=== PATIENT | female | born 1945 | race Caucasian/White ===

== ENCOUNTER → 2022-03-19 09:00 | Outpatient (BNVA) | payer MEDICARE, SELFPAY | PROVIDERS: Family Provider Family Medicine; PCP Family Medicine; Visit Provider Podiatrist Foot & Ankle Surgery | DX: L60.3 Nail dystrophy (principal); I73.9 Peripheral vascular disease, unspecified | CPT/HCPCS: 11721 ==

== ENCOUNTER 2022-04-24 07:43 | Emergency (ER) | payer MEDICARE, SELFPAY ==
[2022-04-24 07:55] VITALS: BP 201/91; PULSE 83; RESP 16; TEMP 36.9; O2SAT 95; BMI 31.1
--- NOTE | 2022-04-24 08:07 | CT_ITS ---
WS: [id number] CT HEAD TECHNIQUE: Noncontrast CT of the head obtained from the skullbase to the vertex. CLINICAL INFORMATION: CVA COMPARISON: None. DLP: 1061.[address] scans at [facility] use at least one of these dose optimization techniques: automated e xposure control; mA and/or kV adjustment per patient size (includes targeted exams where dose is matc hed to clinical indication); or iterative reconstruction. FINDINGS: No evidence of intracranial hemorrhage or mass effect. Ventricular system and basal cisterns are gonzalez nt. Mild small vessel changes with mild parenchymal volume loss. Intracranial vascular calcification. Chronic lacunar infarct RIGHT thalamus. No extra-axial fluid collections. No evidence of mass or mas s effect. Paranasal sinuses and mastoid air cells are well aerated. .Normal visualized soft tissues. CT/CT head wo con* [id number] IMPRESSION: 1. No evidence of intracranial hemorrhage or mass effect. 2. Mild small vessel changes with mild parenchymal volume loss. 3. Chronic lacunar infarct RIGHT thalamus. 4. Dense intracranial vascular calcification. 5. No acute intracranial findings.
--- NOTE | 2022-04-24 08:07 | ECG_ITS ---
[facility] Test Date: 2022-04-24 Pat Name: Kristine Goldstein Department: Room: Gender: Female Telephone Betting Clerk: : 1945 Requested By: Mani Singh Order Number: [id number] Richy MD: Wesley Choe M.D. Measurements Intervals [place] Rate: 72 P: 67 OR: 160 QRS: -35 QRSD: 93 T: 60 QT: 393 QTc: 433 Interpretive Statements SINUS RHYTHM LEFT AXIS DEVIATION [QRS AXIS < -30] Compared to ECG 02/21/2017 10:50:31 Left-axis deviation now present Electronically Signed On 04-24-2022 17:55:36 CDT by Wesley Choe M.D. [email or web address]
--- NOTE | 2022-04-24 08:08 | W.ED.WEAKNES ---
HPI - Weakness General: Chief complaint: Weakness Stated complaint: possible stroke, facial droop and numbness Time Seen by Provider: 04/24/22 08:01 History of Present Illness: 76-year-old presents due to numbness and weakness in the left side face left upper extremity and less so left lower extremity. States this started Friday. Denies any focal pain. Denies any other focal weakness numbness or tingling. Denies any vertigo vision or hearing change. She is not on blood thinners. Review of Systems Narrative: - CONSTITUTIONAL: Denies weight loss, fever and chills. - HEENT: Denies changes in vision and hearing. - RESPIRATORY: Denies SOB and cough. - CV: Denies palpitations and CP. - GI: Denies abdominal pain, nausea, vomiting and diarrhea. - : Denies dysuria and urinary frequency. - MSK: Denies myalgia and joint pain. - SKIN: Denies rash and pruritus. - NEUROLOGICAL: As above - PSYCHIATRIC: Denies suicidal ideation ON LICENSE OF [facility] ED PFSH: Medical History Hypertension Primary localized osteoarthritis of left hip PVD (peripheral vascular disease) Surgical History History of left hip replacement History of tonsillectomy History of tubal ligation Social History Smoking and tobacco status: former smoker Alcohol intake: never Physical Exam Narrative: EXAM NARRATIVE: - GENERAL: Alert and oriented x 3. No acute distress. Well-nourished. - EYES: EOMI. Anicteric. - HENT: Atraumatic, no C-spine tenderness. Moist mucous membranes. No scleral icterus. No cervical lymphadenopathy. - LUNGS: Clear to auscultation bilaterally. No accessory muscle use. Equal lung sounds bilaterally. No respiratory distress. - CARDIOVASCULAR: Regular rate and rhythm. No murmur. No JVD. - ABDOMEN: Soft, non-tender and non-distended. Negative CVA tenderness bilaterally, no rebound or guarding, negative Zaldivar sign. No palpable masses. - EXTREMITIES: No edema. Non-tender. - SKIN: No rashes or lesions. Warm. - NEUROLOGIC: No meningismus, left facial and upper body numbness and weakness. More mild numbness and weakness to left lower extremity. Otherwise no focal deficit. - PSYCHIATRIC: Cooperative. Appropriate mood and affect. Course Vital Signs: Vital signs: Vital Signs Temperature 98.4 F 04/24/22 07:55 Pulse Rate 72 04/24/22 09:02 Respiratory Rate 16 04/24/22 09:02 Blood Pressure 168/93 04/24/22 09:02 Pulse Oximetry 92 04/24/22 09:02 MDM - Weakness Medical Decision Making 76-year-old presents due to left-sided numbness and weakness. Physical exam does reveal mild deficits. She is well outside the window for tPA or any other intervention. CT scan does not reveal any intracranial hemorrhage or acute abnormality. Discussed with neurology and per neurology recommendation she will be discharged and follow-up with them in clinic. Otherwise lab work unremarkable except for urinalysis possible UTI. Prescription for Keflex provided. At this time I believe patient would be safe for discharge and outpatient follow-up. Return precautions provided. Plan was reviewed with the patient who expressed understanding. Questions answered. Patient will follow up with neurology and PCP. Patient discharged in stable condition. Lab Data : 04/24/22 08:25 04/24/22 08:[address] 04/24/22 08:07 IMPRESSION: 1. No evidence of intracranial hemorrhage or mass effect. 2. Mild small vessel changes with mild parenchymal volume loss. 3. Chronic lacunar infarct RIGHT thalamus. 4. Dense intracranial vascular calcification. 5. No acute intracranial findings. Laboratory Results WBC 6.4 10^3/uL (4.0-10.0) 04/24/22 08:25 RBC 4.28 10^6/uL (4.1-5.3) 04/24/22 08:25 Hgb 14.7 g/dL (11.5-15.3) 04/24/22 08:25 Hct 43.4 % (37.0-47.0) 04/24/22 08:25 MCV 101.4 fl (81-99) H 04/24/22 08:25 MCH 34.3 pg (28.0-34.0) H 04/24/22 08:25 MCHC 33.9 g/dL (30.0-36.0) 04/24/22 08:25 RDW 12.9 % (12.1-15.1) 04/24/22 08:25 Plt Count 162 10^3/cmm (130-400) 04/24/22 08:25 MPV 12.6 fL (7.4-10.4) H 04/24/22 08:25 Neut % (Auto) 71.8 % 04/24/22 08:25 Lymph % (Auto) 15.4 % 04/24/22 08:25 [place] % (Auto) 11.5 % 04/24/22 08:25 Eos % (Auto) 0.9 % 04/24/22 08:25 Baso % (Auto) 0.2 % 04/24/22 08:25 Neut # (Auto) 4.60 10^3/uL (1.8-7.7) 04/24/22 08:25 Lymph # (Auto) 1.0 10^3/uL (0.8-4.8) 04/24/22 08:25 [place] # (Auto) 0.7 10^3/uL (0.2-0.9) 04/24/22 08:25 Eos # (Auto) 0.1 10^3/uL (0.0-0.8) 04/24/22 08:25 Baso # (Auto) 0.0 10^3/uL (0.0-0.1) 04/24/22 08:25 Nucleated RBC % (auto) 0 % 04/24/22 08:25 Nucleated RBCs # 0.0 /100WBC 04/24/22 08:25 Sodium 140 mmol/L (136-145) 04/24/22 08:25 Potassium 4.0 mmol/L (3.5-5.1) 04/24/22 08:25 Chloride 102 mmol/L (98-107) 04/24/22 08:25 Carbon Dioxide 24 mmol/L (22-29) 04/24/22 08:25 Anion Gap 18.0 (5-19) 04/24/22 08:25 BUN 16 mg/dL (8-23) 04/24/22 08:25 Creatinine 0.5 mg/dL (0.5-0.9) 04/24/22 08:25 GFR Calculation Not Reportable 04/24/22 08:25 Glucose 121 mg/dL (65-115) H 04/24/22 08:25 Calculated Osmolality 292 mOsm/kg (285-295) 04/24/22 08:25 Calcium 9.2 mg/dL (8.5-10.5) 04/24/22 08:25 Total Bilirubin 0.5 mg/dL (0.15-1.2) 04/24/22 08:25 AST 24 U/L (0-32) 04/24/22 08:25 ALT 15 U/L (0-33) 04/24/22 08:25 Alkaline Phosphatase 67 IU/L (35-105) 04/24/22 08:25 Total Protein 6.6 g/dL (6.6-8.7) 04/24/22 08:25 Albumin 4.2 g/dL (3.5-5.2) 04/24/22 08:25 Globulin 2.4 g/dL (1.3-4.6) 04/24/22 08:25 TSH 1.67 uIU/mL (0.27-4.20) 04/24/22 08:25 Free T4 1.11 ng/dL (0.82-1.77) 04/24/22 08:25 Urine Color Yellow (Yellow) 04/24/22 08:35 Urine Appearance Clear (CLEAR) 04/24/22 08:35 Urine pH 6.5 (5-7) 04/24/22 08:35 Ur Specific Horace 1.010 (1.005-1.030) 04/24/22 08:35 Urine Protein Neg (Negative) 04/24/22 08:35 Urine Glucose (UA) Norm (Normal) 04/24/22 08:35 Urine Ketones Negative (Negative) 04/24/22 08:35 Urine Blood Neg (Negative) 04/24/22 08:35 Urine Nitrate Negative (Negative) 04/24/22 08:35 Urine Bilirubin Neg (Negative) 04/24/22 08:35 Urine Urobilinogen Norm mg/dL (Negative) 04/24/22 08:35 Ur Leukocyte Esterase 1+ (Negative) H 04/24/22 08:35 Urine RBC 0-4 /hpf (0-2) H 04/24/22 08:35 Urine WBC 5-10 /hpf (0-5) H 04/24/22 08:35 Ur Squamous Epith Cells 0-4 /hpf (0-5) H 04/24/22 08:35 Amorphous Sediment Not Reportable 04/24/22 08:35 Urine Bacteria 1+ /hpf (NONE) H 04/24/22 08:35 EKG Data EKG 1: Other EKG comments: Normal sinus rhythm, rate 72, no signs of acute ischemia or other acute abnormality. Discharge Plan Discharge Condition: Stable Prescriptions: No Action lisinopril 20 mg tablet 20 mg PO DAILY 0RF Complete Multivitamin Tablet 1 tab PO DAILY 0RF glucosamine HCl 500 mg tablet 500 mg PO BID 0RF esomeprazole magnesium 20 mg capsule,delayed release(DR/EC) 20 mg PO DAILY 0RF garlic 1,000 mg capsule 1,000 mg PO DAILY 0RF ginkgo biloba 40 mg tablet 40 mg PO TID 0RF coenzyme Q10 [Co Q-10] 10 mg capsule 10 mg PO TID 0RF chromium picolinate 1,000 mcg tablet 1,000 mcg PO DAILY 0RF omega-3 fatty acids [Fish Oil Concentrate] 1,000 mg capsule 1,000 mg PO DAILY 0RF ascorbic acid (vitamin C) 500 mg capsule, extended release 500 mg PO DAILY 0RF selenium 200 mcg capsule 200 mcg PO DAILY 0RF aspirin [Freddy Chewable Aspirin] 81 mg tablet,chewable 81 mg PO DAILY 0RF Referrals: Nando Avila DO [Primary Care Provider] - Coding Level of Care Code ED 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
[2022-04-24 08:37] LABS: Basophils % 0.2 %; Eosinophils # 0.1 10^3/uL (0.0-0.8); Eosinophils % 0.9 %; Hematocrit 43.4 % (37.0-47.0); Hemoglobin 14.7 g/dL (11.5-15.3); Lymphocytes % 15.4 %; Mean Corpuscular HGB Conc 33.9 g/dL (30.0-36.0); Mean Corpuscular Hemoglobin 34.3 pg (28.0-34.0); Mean Corpuscular Volume 101.4 fl (81-99); Mean Platelet Volume 12.6 fL (7.4-10.4); Monocytes # 0.7 10^3/uL (0.2-0.9); Monocytes % 11.5 %; Neutrophils % 71.8 %; Nucleated Red Blood Cells % 0 %; Platelet Count 162 10^3/cmm (130-400); Red Blood Count 4.28 10^6/uL (4.1-5.3); Red Cell Distribution Width 12.9 % (12.1-15.1); White Blood Count 6.4 10^3/uL (4.0-10.0)
[2022-04-24 08:54] LABS: Bilirubin Urine Neg (Negative); Blood Urine Neg (Negative); Glucose Urine UA Norm (Normal); Ketones Urine Negative (Negative); Leukocyte Esterase Urine 1+ (Negative); Nitrate Urine Negative (Negative); Protein Urine Neg (Negative); Urine Appearance Clear (CLEAR); Urine Color Yellow (Yellow); Urobilinogen Urine Norm (Negative); pH Urine 6.5 (5-7)
[2022-04-24 09:01] LABS: RBC Urine 0-4 /hpf (0-2)
[2022-04-24 09:02] VITALS: BP 168/93; PULSE 72; RESP 16; O2SAT 92
[2022-04-24 09:02] LABS: Bacteria Urine 1+ /hpf; Squamous Epithelial Cell Urine 0-4 /hpf (0-5)
[2022-04-24 09:13] LABS: Alanine Aminotransferase 15 U/L (0-33); Albumin Level 4.2 g/dL (3.5-5.2); Alkaline Phosphatase 67 IU/L (35-105); Aspartate Amino Transferase 24 U/L (0-32); Blood Urea Nitrogen 16 mg/dL (8-23); Calcium 9.2 mg/dL (8.5-10.5); Carbon Dioxide 24 mmol/L (22-29); Chloride 102 mmol/L (98-107); Globulin 2.4 g/dL (1.3-4.6); Glucose 121 mg/dL (65-115); Osmolality Calculated 292 mOsm/kg (285-295); Sodium 140 mmol/L (136-145); Thyroid Stimulating Hormone 1.67 uIU/mL (0.27-4.20); Total Bilirubin 0.5 mg/dL (0.15-1.2); Total Protein 6.6 g/dL (6.6-8.7)
[2022-04-24 09:14] LABS: Free T4 Free Thyroxine 1.11 ng/dL (0.82-1.77)
[2022-04-24 09:47] VITALS: BP 149/81; PULSE 74; RESP 18; TEMP 36.7; O2SAT 95
--- NOTE | 2022-04-25 14:30 | DCPLANNER ---
Addendum entered by Stephania Schuler 04/30/22 15:44: Patient had a follow up appointment scheduled for 04.29.22 with neurology - patient did attend appointment. Original Note: brood hatchery manager had message to schedule a follow up appointment for patient with neurology. brood hatchery manager sent patients information to the front office staff at neurology. Patients information will be printed and reviewed. Clinic will call patient with appointment information.
== END 2022-04-24 09:50 | disposition home or self-care (01) ==
PROVIDERS: Emergency Provider Emergency Medicine; PCP Family Medicine
DX: I63.9 Cerebral infarction, unspecified (principal)
CPT/HCPCS: 70450; 80053; 81001; 84439; 84443; 85025; 93005; 99284

== ENCOUNTER → 2022-04-29 10:49 | Outpatient (BNVA) | payer MEDICARE, SELFPAY | PROVIDERS: PCP Family Medicine; Visit Provider Nurse Practitioner | DX: Z86.73 Personal history of transient ischemic attack (TIA), and cerebral infarction without residual deficits (principal); Z87.891 Personal history of nicotine dependence | CPT/HCPCS: 99204 ==

== ENCOUNTER → 2022-04-30 07:14 | Outpatient (BNVA) | payer MEDICARE, SELFPAY | PROVIDERS: PCP Family Medicine; Visit Provider Nurse Practitioner | DX: I63.9 Cerebral infarction, unspecified (principal) | CPT/HCPCS: 80061 ==

== ENCOUNTER 2022-06-13 10:19 | Outpatient (CLI) | payer MEDICARE, SELFPAY ==
--- NOTE | 2022-06-13 11:00 | MR_ITS ---
WS: [id number] MRA ANGIOGRAPHY [place] HISTORY: I63.9 - Cerebral infarction, unspecified COMPARISON: None available. TECHNIQUE: 3-D MR angiography is performed of the [place]. All images are reviewed including source images. Dominant LEFT vertebral artery. RIGHT vertebral artery is small caliber but patent. Normal basilar ar chaparrita. Posterior cerebral arteries are both identified. Dominant RIGHT posterior communicating artery. Hypoplastic LEFT posterior communicating artery. No aneurysm. Intracranial carotid arteries are both patent with mild atherosclerotic disease. No high-grade stenos is. Mild atherosclerosis within the middle cerebral arteries. Slightly greater narrowing of the LEFT M1 segment. No occlusion or aneurysm. Hypoplastic but patent RIGHT A1 segment. No aneurysms anterior cerebral arteries or anterior communicating artery. MR/MR angio head wo con [id number] IMPRESSION: 1. Mild atherosclerotic disease intracranial carotid arteries and bilateral M1 segments. X line no occlusions or high-grade stenosis. 2. Hypoplastic RIGHT A1 segment but patent. 3. No aneurysms.
== END 2022-06-13 10:20 | disposition home or self-care (01) ==
LOC: RAD 10:21
PROVIDERS: PCP Family Medicine; Visit Provider Nurse Practitioner
DX: I63.9 Cerebral infarction, unspecified (principal); I65.29 Occlusion and stenosis of unspecified carotid artery
CPT/HCPCS: 70544

== ENCOUNTER 2022-06-13 10:20 | Outpatient (CLI) | payer MEDICARE, SELFPAY ==
--- NOTE | 2022-06-13 12:15 | USCV_ITS ---
Kristine Goldstein Age: 77 Gender: F : 1945 Exam Date: 06/13/2022 11:54 Ordering Phys: Yves BowenP MSN AGACNP-BC Technologist: ÓSCAR [place] [facility] [place]ication: CEREBRAL INFARCTION BP: 190 / 95 HR: 88 Rhythm: Sinus Technical Quality: Very technically difficult study MEASUREMENTS (Male / Female) Normal Values 2D ECHO LV Diastolic Diameter PLAX 2.5 cm 4.2 - 5.9 / 3.9 - 5.3 cm LV Systolic Diameter PLAX 1.8 cm IVS Diastolic Thickness 1.7 cm 0.6 - 1.0 / 0.6 - 0.9 cm IVS Systolic Thickness 1.9 cm LVPW Diastolic Thickness 1.6 cm 0.6 - 1.0 / 0.6 - 0.9 cm LVPW Systolic Thickness 1.3 cm LVOT Diameter 2.0 cm LV Ejection Fraction 2D Teich 54.4 % LV Ejection Fraction MOD 2C 63.8 % LV Ejection Fraction 2C AL 63.3 % LA Diameter 2.7 cm LA Width 2.3 cm LA Height 3.5 cm RA Width 2.5 cm RA Height 3.4 cm Aorta at Sinotubular Diameter 2.5 cm IVC Diameter 1.3 cm M-MODE Aortic Annulus Diameter 3.6 cm LA Ao Ratio MM 0.7 DOPPLER AV Peak Velocity 108.0 cm/s LVOT Peak Velocity 66.0 cm/s AV Area Cont Eq vti 2.2 cm squared AV Area Cont Eq pk 1.9 cm squared MV Peak Velocity 101.0 cm/s MV Area PHT 3.5 cm squared Mitral E to A Ratio 0.6 MV E' Velocity 25.5 cm/s Mitral E to MV E' Ratio 8.1 Mitral E to LV E' Lateral Ratio 7.6 Mitral E to LV E' Septal Ratio 8.7 TR Peak Velocity 142.3 cm/s TR Peak Gradient 8.1 mmHg TR Mean Velocity 111.3 cm/s TR Mean Gradient 5.1 mmHg TR Velocity Time Integral 26.0 cm TV Peak E Velocity 40.0 cm/s Right Atrial Pressure 3.0 mmHg Pulmonary Artery Systolic Pressu 11.1 mmHg PV Peak Velocity 72.0 cm/s RV Acceleration Time 0.0 s RV Ejection Time 0.3 s RV AcT/ET 0.1 FINDINGS Left Ventricle Normal left ventricular size and systolic function, EF 63 %. Grade I/IV diastolic dysfunction (abnormal relaxation filling pattern), normal to mildly elevated filling pressures. Right Ventricle The right ventricle is normal in size and function. Right Atrium The right atrium is normal in size. Left Atrium The left atrium is normal in size. Mitral Valve No gross abnormalities noted Aortic Valve Thickened aortic valve. Tricuspid Valve No gross abnormalities noted Pulmonic Valve Pulmonic valve not well visualized. Pericardium Normal pericardium without effusion. Aorta Normal ascending aorta dimension. IVC Normal inferior vena cava. CONCLUSIONS Normal left ventricular size and systolic function, EF 63 %. Grade I/IV diastolic dysfunction (abnormal relaxation filling pattern), normal to mildly elevated filling pressures. Normal cardiac chamber sizes Thickened aortic valve. No significant stenotic or regurgitant lesions, by color-flow Doppler examination There is no pericardial effusion. Technically difficult study because of the poor ultrasonic window No similar previous studies are available for comparison Dr Bryce Hollins MD FACC (Electronically Signed) Final Date: 14 June 2022 10:50 S
== END 2022-06-13 10:21 | disposition home or self-care (01) ==
LOC: RAD 10:21
PROVIDERS: PCP Family Medicine; Visit Provider Nurse Practitioner
DX: I63.9 Cerebral infarction, unspecified (principal); I35.8 Other nonrheumatic aortic valve disorders; I65.29 Occlusion and stenosis of unspecified carotid artery; G31.9 Degenerative disease of nervous system, unspecified
CPT/HCPCS: 70544; 70551; 93306

== ENCOUNTER 2022-06-13 10:20 | Outpatient (CLI) | payer MEDICARE, SELFPAY ==
--- NOTE | 2022-06-13 11:15 | MR_ITS ---
WS: [id number] MRI BRAIN WITHOUT CONTRAST HISTORY: I63.9 - Cerebral infarction, unspecified COMPARISON: CT head 04/24/2022 TECHNIQUE: Diffusion imaging, multiplanar T1, T2 and FLAIR imaging obtained. No evidence for acute infarct or hemorrhage. [place]-white matter differentiation is normal. Mild atrophy and moderate small vessel ischemic disease. There are several T2 and FLAIR signal hyperi ntensities throughout the deep white matter and subcortical white matter. Prior lacunar infarct in th e RIGHT thalamus. No large infarcts. Ventricles and extra-axial spaces are normal. No inferior displacement of cerebellar tonsils. The sella turcica and pituitary gland are unremarkabl e. Seen only on the sagittal T1 sequence is an area of decreased signal in the cervical cord at the C4 l evel. Dural venous sinuses and [place] demonstrate no abnormality on this unenhanced studies. Paranasal sinuses: Clear. Mastoid air cells: Small effusion LEFT mastoid air cells. Calvarium and scalp: Intact. MR/MR head wo con* [id number] IMPRESSION: 1. No acute infarct. 2. No hemorrhage. 3. Mild atrophy and moderate small vessel ischemic disease. Prior lacunar infa rct RIGHT thalamus. 4. Seen only on the sagittal T1 sequence of the brain is a low signal area in the cervical cord at the C4 level. This may be an artifact due to volume averag ing. This needs to be further evaluated for possible cystic lesion in the cervi mickie cord. Recommend follow-up MRI cervical spine with and without contrast.
== END 2022-06-13 10:21 | disposition home or self-care (01) ==
LOC: RAD 10:21
PROVIDERS: PCP Family Medicine; Visit Provider Nurse Practitioner
DX: I63.9 Cerebral infarction, unspecified (principal); G31.9 Degenerative disease of nervous system, unspecified; I65.29 Occlusion and stenosis of unspecified carotid artery
CPT/HCPCS: 70544; 70551

== ENCOUNTER → 2022-07-23 08:10 | Outpatient (BNVA) | payer MEDICARE, SELFPAY | PROVIDERS: PCP Family Medicine; Visit Provider Podiatrist Foot & Ankle Surgery | DX: I73.9 Peripheral vascular disease, unspecified (principal); L60.3 Nail dystrophy | CPT/HCPCS: 11721 ==

== ENCOUNTER → 2022-12-10 07:58 | Outpatient (BNVA) | payer MEDICARE, SELFPAY | PROVIDERS: PCP Family Medicine; Visit Provider Podiatrist Foot & Ankle Surgery | DX: I73.9 Peripheral vascular disease, unspecified (principal); L60.3 Nail dystrophy | CPT/HCPCS: 11721 ==

== ENCOUNTER → 2023-01-21 10:46 | Outpatient (BNVA) | payer MEDICARE, SELFPAY | PROVIDERS: PCP Family Medicine; Visit Provider Family Medicine | DX: I10 Essential (primary) hypertension (principal); R41.3 Other amnesia; I63.9 Cerebral infarction, unspecified | CPT/HCPCS: 80053; 80061; 82607; 84443; 85025 ==

== ENCOUNTER → 2023-03-12 08:20 | Outpatient (BNVA) | payer MEDICARE, SELFPAY | PROVIDERS: PCP Family Medicine; Visit Provider Podiatrist Foot & Ankle Surgery | DX: I73.9 Peripheral vascular disease, unspecified (principal); L60.3 Nail dystrophy | CPT/HCPCS: 11721 ==

== ENCOUNTER → 2023-05-14 08:29 | Outpatient (BNVA) | payer MEDICARE, SELFPAY | PROVIDERS: PCP Family Medicine; Visit Provider Podiatrist Foot & Ankle Surgery | DX: L60.3 Nail dystrophy; I73.9 Peripheral vascular disease, unspecified | CPT/HCPCS: 11721 ==

== ENCOUNTER → 2023-06-26 11:21 | Outpatient (BNVA) | payer MEDICARE, SELFPAY | PROVIDERS: PCP Family Medicine; Visit Provider Family Medicine | DX: R41.3 Other amnesia (principal); I10 Essential (primary) hypertension; I63.9 Cerebral infarction, unspecified; F03.90 Unspecified dementia, unspecified severity, without behavioral disturbance, psychotic disturbance, mood disturbance, and anxiety; E03.9 Hypothyroidism, unspecified | CPT/HCPCS: 80053; 82607; 84443; 85025 ==

== ENCOUNTER → 2023-07-16 08:29 | Outpatient (BNVA) | payer MEDICARE, SELFPAY | PROVIDERS: PCP Family Medicine; Visit Provider Podiatrist Foot & Ankle Surgery | DX: L60.8 Other nail disorders (principal); L60.3 Nail dystrophy; I73.9 Peripheral vascular disease, unspecified | CPT/HCPCS: 11721 ==

== ENCOUNTER → 2023-10-15 08:21 | Outpatient (BNVA) | payer MEDICARE, SELFPAY | PROVIDERS: PCP Family Medicine; Visit Provider Podiatrist Foot & Ankle Surgery | DX: L60.8 Other nail disorders (principal); L60.3 Nail dystrophy; I73.9 Peripheral vascular disease, unspecified | CPT/HCPCS: 11721 ==

== ENCOUNTER → 2023-12-30 08:27 | Outpatient (BNVA) | payer MEDICARE, SELFPAY | PROVIDERS: PCP Family Medicine; Visit Provider Podiatrist Foot & Ankle Surgery | DX: L60.8 Other nail disorders (principal); L60.3 Nail dystrophy; I73.9 Peripheral vascular disease, unspecified | CPT/HCPCS: 11721 ==

== ENCOUNTER → 2024-04-06 08:42 | Outpatient (BNVA) | payer MEDICARE, SELFPAY | PROVIDERS: PCP Family Medicine; Visit Provider Podiatrist Foot & Ankle Surgery | DX: L60.3 Nail dystrophy (principal); L60.8 Other nail disorders; I73.9 Peripheral vascular disease, unspecified | CPT/HCPCS: 11721 ==

== ENCOUNTER → 2024-07-26 13:58 | Outpatient (BNVA) | payer MEDICARE, SELFPAY | PROVIDERS: PCP Family Medicine; Visit Provider Family Medicine | DX: I10 Essential (primary) hypertension (principal); F03.90 Unspecified dementia, unspecified severity, without behavioral disturbance, psychotic disturbance, mood disturbance, and anxiety; I63.9 Cerebral infarction, unspecified; E03.9 Hypothyroidism, unspecified | CPT/HCPCS: 80053; 80061; 82607; 84443; 85025 ==

== ENCOUNTER → 2025-04-18 09:48 | Outpatient (BNVA) | payer MEDICARE, SELFPAY | PROVIDERS: PCP Family Medicine; Visit Provider Podiatrist Foot & Ankle Surgery | DX: I73.9 Peripheral vascular disease, unspecified (principal); L60.3 Nail dystrophy; L60.8 Other nail disorders; M79.671 Pain in right foot; M79.672 Pain in left foot | CPT/HCPCS: 11721 ==

== ENCOUNTER → 2025-07-19 09:35 | Outpatient (BNVA) | payer MEDICARE, SELFPAY | PROVIDERS: PCP Family Medicine; Visit Provider Podiatrist Foot & Ankle Surgery | DX: I73.9 Peripheral vascular disease, unspecified (principal); L60.3 Nail dystrophy; L60.8 Other nail disorders | CPT/HCPCS: 11721 ==

== ENCOUNTER → 2025-08-09 13:07 | Outpatient (BNVA) | payer MEDICARE, SELFPAY | PROVIDERS: PCP Family Medicine; Visit Provider Family Medicine | DX: I10 Essential (primary) hypertension (principal); I63.9 Cerebral infarction, unspecified; F03.90 Unspecified dementia, unspecified severity, without behavioral disturbance, psychotic disturbance, mood disturbance, and anxiety; E03.9 Hypothyroidism, unspecified | CPT/HCPCS: 80053; 80061; 82306; 82607; 84443; 85025 ==

== ENCOUNTER 2025-09-11 08:47 | Emergency (ER) | payer MEDICARE, SELFPAY ==
[2025-09-11 08:59] VITALS: BP 141/97; PULSE 86; RESP 16; TEMP 36.8; O2SAT 93; BMI 29.8
--- NOTE | 2025-09-11 09:19 | W.ED.EYEPROB ---
HPI - Eye Problem General: Chief complaint: Eye Problems Stated complaint: contact stuck in L eye Time Seen by Provider: 09/11/25 08:58 Source: patient Mode of arrival: ambulatory Limitations: no limitations History of Present Illness: Patient is an 80-year-old female who presents emergency department complaining of contact dislodged in the left eye. She wears glasses contact states she has worn it for the past 15 years, has had intermittent issues with them but today was unable to fix it herself. Reports foreign body sensation in her eye, no tearing or redness. No visual changes. MD chief complaint: other (Contact dislodged left eye) Associated symptoms: Denies fever(s), headache(s), nausea, neck pain or vomiting Related Data Home Medications ?Medication ?Instructions ?Recorded ?Confirmed ascorbic acid (vitamin C) 500 mg 500 mg PO DAILY 12/27/19 07/19/25 capsule,extended release aspirin 81 mg chewable tablet 81 mg PO DAILY 12/27/19 07/19/25 (Freddy Chewable Low Dose Aspirin) chromium picolinate 1,000 mcg 1,000 mcg PO DAILY 12/27/19 07/19/25 tablet coenzyme Q10 10 mg capsule (Co 10 mg PO TID 12/27/19 07/19/25 Q-10) esomeprazole magnesium 20 mg 20 mg PO DAILY 12/27/19 07/19/25 capsule,delayed release garlic 1,000 mg capsule 1,000 mg PO DAILY 12/27/19 07/19/25 ginkgo biloba 40 mg tablet 40 mg PO TID 12/27/19 07/19/25 glucosamine HCl 500 mg tablet 500 mg PO BID 12/27/19 07/19/25 multivitamin,xh-qagb-grephixb 1 tab PO DAILY 12/27/19 07/19/25 (Complete Multivitamin tablet) omega-3 fatty acids 1,000 mg 1,000 mg PO DAILY 12/27/19 07/19/25 capsule (Fish Oil Concentrate) selenium 200 mcg capsule 200 mcg PO DAILY 12/27/19 07/19/25 hydrochlorothiazide 25 mg tablet 25 mg PO DAILY 07/29/22 07/19/25 naproxen 500 mg tablet (Naprosyn) 500 mg PO DAILY PRN 07/29/22 07/19/25 Previous Rx's ?Medication ?Instructions ?Recorded atorvastatin 20 mg tablet (Lipitor) 40 mg (2 x 20 mg) PO DAILY #60 tabs 05/02/22 clopidogrel 75 mg tablet See Rx Instructions .Route 10/26/22 .COMPLEX #90 tabs albuterol sulfate 90 mcg/actuation 2 puff inhalation Q4H PRN 06/03/23 aerosol inhaler (Ventolin HFA) shortness of breath or wheezing #8.5 grams promethazine-DM 6.25 mg-15 mg/5 mL 5 ml PO Q4H PRN cough #118 mL 06/03/23 oral syrup amoxicillin 875 mg-potassium 1 tab PO BID infection #20 tabs 07/26/24 clavulanate 125 mg tablet lisinopril 20 mg tablet 20 mg PO DAILY #90 tabs 08/09/25 Allergies Allergy/AdvReac Type Severity Reaction Status Date / Time erythromycin base AdvReac ADR-Itching Verified 09/11/25 09:05 Review of Systems General: Reports: 10 or more systems reviewed and unremarkable except in HPI and below Const: Denies: fever(s), chills or fatigue Eyes: Reports: other (Contact dislodged left eye); Denies: change in vision ENMT: Denies: throat pain, ear or mastoid pain or nasal discharge Card: Denies: chest pain, palpitations, swelling of feet/ankles or lightheadedness Resp: Denies: dyspnea, productive cough or wheezing GI: Denies: abdominal pain, nausea, vomiting, diarrhea or constipation : Denies: flank pain, difficulty voiding, dysuria or urinary frequency Musc: Denies: neck pain, back pain or joint pain Skin/Breast: Denies: rash Neuro: Denies: headache(s), numbness in extremities or weakness in extremities PFSH ED PFSH: Medical History Abnormal MRI Hypertension Primary localized osteoarthritis of left hip PVD (peripheral vascular disease) Surgical History History of left hip replacement History of tonsillectomy History of tubal ligation Social History Smoking and tobacco/nicotine status: former use of tobacco/nicotine Alcohol intake: never Substance/Drug Use: never Physical Exam Const: COMMON NORMALS: no acute distress, patient oriented x3 and no limitations GENERAL APPEARANCE: cooperative, comfortable and well developed ORIENTATION/CONSCIOUSNESS: Yes awake, Yes oriented to person, Yes oriented to place and Yes oriented to time HENMT: COMMON NORMALS: normocephalic, atraumatic and hearing grossly normal bilaterally HEAD & SCALP: normocephalic and atraumatic Eye: COMMON NORMALS: Equal, round and reactive pupils present, EOMs intact bilaterally and conjunctivae normal CONJUNCTIVA: Yes conjunctivae normal PUPIL: Yes Equal, round and reactive pupils present OTHER: Contact is present to lateral aspect of left eye, there is no associated conjunctival edema or erythema. No tearing. Normal vision. Neuro: COMMON NORMALS: patient oriented x3, moves all extremities, no focal motor deficits and no sensory deficits noted SENSORIUM/ORIENTATION: Yes oriented to person, Yes oriented to place and Yes oriented to time Psych: COMMON NORMALS: mental status grossly normal and Normal thought process present THOUGHT PROCESS: Normal thought process present Skin: COMMON NORMALS: no rashes or lesions noted GENERAL SKIN EXAM: no rashes or lesions noted Procedures FB Removal Eye Location: eye (L) Foreign body: other (glass contact) Evidence of corneal penetration: No Technique: cotton tip swab Patient tolerated procedure: well Course Vital Signs: Vital signs: Vital Signs Temperature 98.2 F 09/11/25 08:59 Pulse Rate 86 09/11/25 08:59 Respiratory Rate 16 09/11/25 08:59 Blood Pressure 141/97 09/11/25 08:59 Pulse Oximetry 93 09/11/25 08:59 Oxygen Delivery Me thod Room Air 09/11/25 08:59 MDM - Eye Problem Medical Decision Making Patient presented complaining of a contact lens in her left eye that had dislodged and she was unable to get it out. It was easily identified here in the emergency department and removed with cotton tip applicator. She had no residual pain following removal to indicate need for fluorescein staining for corneal abrasion, vision unchanged, no pain with extraocular movements, no other concerns and she is allowed discharge home. No radiology studies performed this visit Discharge Plan Discharge Patient Disposition: Home Clinical Impression: Contact lens stuck Condition: Stable Prescriptions: No Action Complete Multivitamin Tablet 1 tab PO DAILY glucosamine HCl 500 mg tablet 500 mg PO BID esomeprazole magnesium 20 mg capsule,delayed release(DR/EC) 20 mg PO DAILY garlic 1,000 mg capsule 1,000 mg PO DAILY ginkgo biloba 40 mg tablet 40 mg PO TID coenzyme Q10 [Co Q-10] 10 mg capsule 10 mg PO TID chromium picolinate 1,000 mcg tablet 1,000 mcg PO DAILY omega-3 fatty acids [Fish Oil Concentrate] 1,000 mg capsule 1,000 mg PO DAILY ascorbic acid (vitamin C) 500 mg capsule, extended release 500 mg PO DAILY selenium 200 mcg capsule 200 mcg PO DAILY aspirin [Freddy Chewable Aspirin] 81 mg tablet,chewable 81 mg PO DAILY promethazine-DM 6.25-15 mg/5 mL syrup 5 ml PO Q4H PRN (Reason: cough) Qty: 118 0RF Rx Instructions: Do not exceed more than 30ml/24hour period (6 doses) albuterol sulfate [Ventolin HFA] 90 mcg/actuation HFA aerosol inhaler 2 puff inhalation Q4H PRN (Reason: shortness of breath or wheezing) Qty: 8.5 0RF naproxen [Naprosyn] 500 mg tablet 500 mg PO DAILY PRN hydrochlorothiazide 25 mg tablet 25 mg PO DAILY amoxicillin-pot clavulanate 875-125 mg tablet 1 tab PO BID Qty: 20 0RF lisinopril 20 mg tablet 20 mg PO DAILY Qty: 90 3RF Lipitor 20 mg tablet 40 mg PO DAILY Qty: 60 3RF Rx Instructions: Take 2 tablets daily. clopidogrel 75 mg tablet See Rx Instructions .ROUTE .COMPLEX Qty: 90 3RF Dose Instruction: Take 1 tablet by mouth once daily Rx Instructions: Take 1 tablet by mouth once daily Discharge Orders: Discharge ED (Routine); Ordered 09/11/25 Ordered By: Romain Du Referrals: Nando Avila DO [Primary Care Provider, Family Practice] Patient Instructions: Patient Portal & Rosaura Instructions Activity Restrictions/Additional Instructions: Continue normal contact lens wearing. Best that for the rest of the day you use eyeglasses to let your eyes rest. Follow-up with primary care as needed. 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
== END 2025-09-11 09:15 | disposition home or self-care (01) ==
PROVIDERS: Emergency Provider Physician Assistant; PCP Family Medicine
DX: T15.92XA Foreign body on external eye, part unspecified, left eye, initial encounter (principal); W44.8XXA Other foreign body entering into or through a natural orifice, initial encounter; Z79.02 Long term (current) use of antithrombotics/antiplatelets; Z79.82 Long term (current) use of aspirin; Z87.891 Personal history of nicotine dependence; I10 Essential (primary) hypertension
CPT/HCPCS: 99282